=== PATIENT | male | born 1970 | race Caucasian/White ===

== ENCOUNTER 2017-07-13 16:13 | Emergency (ER) | payer MEDICARE ==
[2017-07-13] MEDS ORDERED: OXYCODONE-ACETAMINOPHEN 5-325 MG TABLET PO ONE (17:20)
--- NOTE | 2017-07-13 17:56 | RADIOLOGY REPORT (SQ) ---
EXAM DESCRIPTION: SHOULDER RIGHT 2 OR MORE VIEWS COMPLETED DATE/TIME: 07/13/2017 5:06 pm REASON FOR STUDY: injury shoulder COMPARISON: None. NUMBER OF VIEWS: Three views. TECHNIQUE: Internal rotation, external rotation, and Y view images acquired of the right shoulder. LIMITATIONS: None. FINDINGS: MINERALIZATION: Normal. BONES: No acute fracture or dislocation. No worrisome bone lesions. JOINTS: Moderate acromioclavicular arthropathy. VISUALIZED LUNGS AND RIBS: No pneumothorax. No rib fracture. SOFT TISSUES: Incidental note is made of a partially visualized spinal stimulator. OTHER: No other significant finding. IMPRESSION: Moderate acromioclavicular arthropathy. No evidence of acute osseous injury. TECHNICAL DOCUMENTATION: JOB ID: [id number] [employer]- All Rights Reserved
--- NOTE | 2017-07-13 18:03 | ER Document Report ---
ED Extremity Problem, Upper - General Chief Complaint: Shoulder Pain Stated Complaint: FALL,SHOULDER PAIN Time Seen by Provider: 07/13/17 16:48 Mode of Arrival: Ambulatory Information source: Patient Notes: Patient is a 47-year-old male who presents to the ER today for right shoulder pain after catching himself in the shower today while he was falling. Patient states that his left leg occasionally gives out on him due to some injuries in the past and that is what happened in the shower today he states. Patient held out his right arm to catch himself and has a diagnosed rotator cuff injury that he is awaiting MRI for, has increased pain to the right shoulder. He denies falling on the shoulder or the hand, states that he caught himself. He denies any numbness or tingling anywhere. TRAVEL OUTSIDE OF THE [place] IN LAST 30 DAYS: No - Related Data Allergies/Adverse Reactions: No Known Allergies Allergy (Unverified 07/13/17 16:16) Past Medical History - General Information source: Patient - Social History Smoking Status: Current Every Day Smoker Chew tobacco use (# tins/day): No Frequency of alcohol use: Rare Drug Abuse: None Family History: Reviewed & Not Pertinent Renal/ Medical History: Denies: Hx Peritoneal Dialysis Past Surgical History: Reports: Hx Orthopedic Surgery - fusion l3-S1, amputation lt hand, rt ankle surg Review of Systems - Review of Systems Constitutional: No symptoms reported EENT: No symptoms reported Cardiovascular: No symptoms reported Respiratory: No symptoms reported Gastrointestinal: No symptoms reported Genitourinary: No symptoms reported Male Genitourinary: No symptoms reported Musculoskeletal: See HPI Skin: No symptoms reported Hematologic/Lymphatic: No symptoms reported Neurological/Psychological: No symptoms reported Physical Exam - Vital signs Vitals: Temp Pulse Resp BP Pulse Ox 98.5 F 86 18 150/88 H 97 07/13/17 16:17 07/13/17 16:17 07/13/17 16:17 07/13/17 16:17 07/13/17 16:17 - Notes Notes: PHYSICAL EXAMINATION: GENERAL:Uncomfortable, but in no acute distress. HEAD: Atraumatic, normocephalic. EYES: Pupils equal round and reactive to light, extraocular movements intact, sclera anicteric, conjunctiva are normal. NECK: Normal range of motion, supple without lymphadenopathy LUNGS: CTAB and equal. No wheezes rales or rhonchi. HEART: Regular rate and rhythm without murmurs EXTREMITIES: limited range of motion of the right arm at the shoulder with active abduction, flexion and extension, good passive rom at shoulder but with pain on flexion and extension/abduction, tender to right anterior shoulder, no pitting edema. No cyanosis. NEUROLOGICAL: Cranial nerves grossly intact. Normal sensory/motor exams. PSYCH: Normal mood, normal affect. SKIN: Warm, Dry, normal turgor, no rashes or lesions noted Course - Re-evaluation Re-evalutation: 07/14/17 01:09 X-ray shows moderate acromioclavicular arthropathy but no acute osseous injury. Patient placed in sling and told to follow-up with his MRI appointment that is already scheduled. - Vital Signs Vital signs: Temp Pulse Resp BP Pulse Ox 98.2 F 76 16 146/82 H 100 07/13/17 18:11 07/13/17 18:11 07/13/17 18:11 07/13/17 18:11 07/13/17 18:11 Procedures - Immobilization Right Shoulder Time completed: 19:00 Pre-Proc Neuro Vasc Exam: Normal Immobilizer type: Sling Performed by: PCT Post-Proc Neuro Vasc Exam: Normal Alignment checked and good: Yes Discharge - Discharge Clinical Impression: Rotator cuff injury Qualifiers: Encounter type: initial encounter Laterality: right Qualified Code(s): S46.001A - Unspecified injury of muscle(s) and tendon(s) of the rotator cuff of right shoulder, initial encounter Condition: Stable Disposition: HOME, SELF-CARE Additional Instructions: Keep in sling as much as you possibly can, moving slightly at least 2 times per day to prevent frozen shoulder. Return immediately for any new or worsening symptoms. Follow up with ortho Prescriptions: Oxycodone HCl/Acetaminophen [Percocet 5-325 mg Tablet] 1 - 2 tab PO Q4H PRN #10 tablet PRN Reason:
[2017-07-13 18:19] VITALS: BP 146/82
== END 2017-07-13 18:11 | disposition home or self-care (01) ==
LOC: ER 16:13
DX: S46.001A Unspecified injury of muscle(s) and tendon(s) of the rotator cuff of right shoulder, initial encounter (principal); W01.0XXA Fall on same level from slipping, tripping and stumbling without subsequent striking against object, initial encounter; Y93.E1 Activity, personal bathing and showering; F17.200 Nicotine dependence, unspecified, uncomplicated
CPT/HCPCS: 99283; 73030; A9270